=== PATIENT | male | born 1945 ===

== ENCOUNTER → 2017-09-27 | Outpatient (CLI) | payer OTHER ==
[2017-09-27 18:27] LABS: BLOOD UREA NITROGEN 7 mg/dl (7-18); CALCIUM 9.1 mg/dl (8.5-10.1); CARBON DIOXIDE 32 mmol/L (21-32); CREATININE 1.09 mg/dl (0.60-1.40); GLUCOSE 105 mg/dl (70-99); POTASSIUM 3.4 mmol/L (3.5-5.1); SODIUM 132 mmol/L (136-145); URIC ACID 6.5 mg/dl (2.6-7.2)
== END | disposition home or self-care (01) ==
LOC: C.LABMFLN 15:10
PROVIDERS: ATTEND Family Medicine
DX: I10 Essential (primary) hypertension (principal); E87.6 Hypokalemia; Z87.39 Personal history of other diseases of the musculoskeletal system and connective tissue